=== PATIENT | male | born 1985 | race Caucasian/White ===

== ENCOUNTER 2024-12-29 13:54 | Outpatient (OUT) | payer BC, SELFPAY ==
--- OUTSIDE RECORDS SUMMARY | 2014-02-19 11:15 | XMS_ITS | Encounter Summary ---
Author Organization [facility] Address [address] [place] [address] Care Team Providers Care Recording Studio Intern Name Role Phone Stephen Chang MD Primary Care Provider [phone] Encounter Details Date Type Department Care Team (Late st Contact Info) Description 02/19/2014 11:15 AM EDT Hospital Encounter [facility] Physical Therapy [address] [place] [address] HernandoLv, PT [address] [place] [address] Stephen Reed, DO [address] [facility], [facility] [address] [id number] Social History Tobacco Use Types Packs/Day Years Used Date Smoking Tobacco: Never Smokeless Tobacco: Never Alcohol Use Standard Drinks/Week Comments Yes 0 (1 standard drink = 0.6 oz pur e alcohol) AUDIT-C Answer Date Recorded Q1: How often do you have a drink containing alc ohol? Monthly or less 01/20/2022 Average Number of Drinks Not on file 022 Frequency of Binge Drinking Not on file 12/29 Sex and Gender Information Value Date Recorded Sex Assigned at Not on file Legal Sex Male 7:45 PM EST Gender Identity Not on file Sexual Orientation Not on file COVID-19 Exposure Response Date Recorded In the last 10 days, have yo u been in contact with someone who was confirmed or suspected to have Coronavirus/COVID-19? No / Unsure 01/20/2022 6:42 AM EDT documented as of this encounter Functional Status documented as of this encounter Plan of Treatment Not on file documented as of this encounter Visit Diagnoses Not on filedocumented in this encounter Additional Health Concerns Infection Onset Date Last Indicated Resolved Time COVID-19 (Rule Out) 01/20/2022 01/20/2022 01/21/20 7:19 AM EDT documented as of this encounter Care Teams Recording Studio Intern Relationship Specialty Start Date End Date Stephen Chang MD [address] [place] [address] PCP - General 01/02/14 documented as of this encounter
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
--- OUTSIDE RECORDS SUMMARY | 2024-12-29 14:01 | XMS_ITS | Clinical Summary ---
Author Organization [facility] Address [facility] [place] [address] Care Team Providers Care Telephone Instrument Supervisor Name Role Phone Stephen Chang MD Primary Care Provider [phone] [phone] Allergies No known active allergies Medications apixaban (ELIQUIS) 2.5 mg Tab Take 2.5 mg by mouth 2 (two) times a day . Active isosorbide dinitrate (ISORDIL) 30 MG tablet Take 30 mg by mouth once daily 1/2 tablet . Active metoprolol tartrate (LOPRESSOR) 25 MG tablet Take 25 mg by mouth 2 (two) times a day 1/2 tablet . Active diltiazem (CARDIZEM CD) 120 MG 24 hr capsule Take 120 mg by mouth daily . Active Social History Tobacco Use Types Packs/Day Years Used Date Smoking Tobacco: Never Smokeless Tobacco: Never Tobacco Cessation:Counseling Given: Not Answered Alcohol Use Standard Drinks/Week Comments Yes 6 (1 standard drink = 0.6 oz pur e alcohol) every sunday Sex and Gender Information Value Date Recorded Sex Assigned at Not on file Legal Sex Male 2:04 PM EDT Gender Identity Not on file Sexual Orientation Not on file Last Filed Vital Signs Vital Sign Reading Time Taken Comments Blood Pressure 116/71 01/27/2022 3:40 PM EDT Pulse 91 01/27/2022 3:40 PM EDT Temperature 36.5 C (97.7 F) 01/27/2022 1:06 PM EDT Respiratory Rate - - Oxygen Saturation 95% 01/27/2022 3:40 PM EDT Inhaled Oxygen Concentration - - Weight 101.6 kg (224 lb) 01/27/2022 10:47 AM EDT Height 180.3 cm (5' 11 ) 01/27/2022 10:47 AM EDT Body Mass Index 31.24 01/27/2022 10:47 AM EDT Plan of Treatment Not on file Insurance [employer] OUT OF STATE [facility] Advance Directives For more information, please contact: [phone] * Full Code (Latest Code Status on File) Date Activated Date Inactivated Comments 01/27/2022 10:47 AM 01/27/2022 1:17 PM Care Teams Telephone Instrument Supervisor Relationship Specialty Start Date End Date Stephen Chang MD [address] [place], [place] [id number] PCP - General Family Medicine 01/27/22
--- OUTSIDE RECORDS SUMMARY | 2024-12-29 14:01 | XMS_ITS | Encounter Summary ---
Author Organization [facility] Address [address] [place] [address] Care Team Providers Care Tension Worker Name Role Phone Stephen Chang MD Primary Care Provider [phone] [phone] Encounter Details Date Type Department Care Team (Late st Contact Info) Description 01/27/2022 Prep for Surgery [facility] Provider Cardiology [address] [place] [address] Antonio Machado MD [address] [id number] Social History Tobacco Use Types Packs/Day Years Used Date Smoking Tobacco: Never Smokeless Tobacco: Never Alcohol Use Standard Drinks/Week Comments Yes 6 (1 standard drink = 0.6 oz pur e alcohol) every sunday Sex and Gender Information Value Date Recorded Sex Assigned at Not on file Legal Sex Male 2:04 PM EDT Gender Identity Not on file Sexual Orientation Not on file documented as of this encounter Plan of Treatment Not on file documented as of this encounter Visit Diagnoses Not on filedocumented in this encounter Care Teams Tension Worker Relationship Specialty Start Date End Date Stephen Chang MD [address] [place] [id number] PCP - General Family Medicine 01/27/22 documented as of this encounter
[2024-12-30 05:09] LABS: FSH 3.4 mIU/mL (1.5-12.4); Luteinizing Hormone(LH) 3.1 mIU/mL (1.7-8.6); Prolactin 6.1 ng/mL (3.9-22.7); Testosterone 187 ng/dL (264-916)
== END 2024-12-29 13:55 | disposition home or self-care (01) ==
LOC: LAB 13:59
PROVIDERS: PCP Family Medicine; Visit Provider Urology
DX: E23.0 Hypopituitarism (principal)
CPT/HCPCS: 36415; 83001; 83002; 84146; 84403